=== PATIENT | female | born 1940 | race Asian ===

== ENCOUNTER 2017-09-19 22:50 | Emergency (ER) | payer MEDICARE, MEDICAID ==
[~2017-09-19] VITALS: Ht 147.3 cm; Wt 53.5 kg
[2017-09-20 01:05] VITALS: BP 142/62
== END 2017-09-20 01:07 | disposition home or self-care (01) ==
LOC: ED 23:35
DX: S00.12XA Contusion of left eyelid and periocular area, initial encounter (principal); S00.11XA Contusion of right eyelid and periocular area, initial encounter; G89.11 Acute pain due to trauma; R07.81 Pleurodynia; E11.9 Type 2 diabetes mellitus without complications; W01.198A Fall on same level from slipping, tripping and stumbling with subsequent striking against other object, initial encounter; Y93.01 Activity, walking, marching and hiking; Y92.480 Sidewalk as the place of occurrence of the external cause; Y99.8 Other external cause status
CPT/HCPCS: 70450; 70486; 72125; 93005; 99284

== ENCOUNTER 2019-05-02 14:39 | Emergency (ER) | payer MEDICARE, MEDICAID ==
--- NOTE | 2019-05-02 15:31 | NUR ---
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 NAD NOTED.
[2019-05-02 15:32] LABS: BASOPHILS # (AUTO) 0.02 x10^3/uL (0-0.1); BASOPHILS % (AUTO) 0 % (0-1); EOSINOPHILS # (AUTO) 0.34 x10^3/uL (0-0.4); EOSINOPHILS % (AUTO) 5 % (1-7); LYMPHOCYTES # (AUTO) 2.19 x10^3/uL (1-3.4); LYMPHOCYTES % (AUTO) 30 % (22-44); MD NO; MEAN CORPUSCULAR HEMOGLOBIN 27.8 pg (27.0-34.8); MEAN CORPUSCULAR HGB CONC 31.9 g/dL (32.4-35.8); MEAN CORPUSCULAR VOLUME 87.2 fL (80-100); MEAN PLATELET VOLUME 7.6 fL (7.4-10.4); MONOCYTES # (AUTO) 0.54 x10^3/uL (0.2-0.8); MONOCYTES % (AUTO) 7 % (2-9); NEUTROPHILS % (AUTO) 58 % (42-75); PLATELET COUNT 238 x10^3/uL (130-400); RED BLOOD COUNT 5.09 x10^6/uL (3.82-5.3); RED CELL DISTRIBUTION WIDTH 13.4 % (9.6-15.2)
--- NOTE | 2019-05-02 15:44 | NUR ---
PATIENT PRESENTS TO ED TODAY FOR DIZZINESS AND LEFT EAR PAIN STARTING TODAY, PROGRAM HOST ON PATIENT, AWAITING ORDERS, CALL LIGHT WITHIN REACH, JETT.
[2019-05-02 15:45] LABS: ANION GAP 5 mmol/L (5-15); CALCIUM 9.3 mg/dL (8.5-10.1); CHLORIDE 107 mmol/L (98-107); CREATININE 0.96 mg/dL (0.55-1.02)
[2019-05-02 15:48] LABS: TROPONIN I < 0.015 ng/mL (0.000-0.045)
[2019-05-02 16:20] LABS: MICROSCOPIC NOT IND
[2019-05-02 16:24] LABS: CULTURE INDICATED? NO
--- NOTE | 2019-05-02 16:24 | NUR ---
PATIENT AMB WITH STEADY GAIT TO BATHROOM, UA COLLECTED AND SENT TO LAB.
[2019-05-02 17:08] VITALS: BP 136/66
--- NOTE | 2019-05-02 17:08 | NUR ---
Patient/Caregiver given discharge instructions and they have confirmed that they understand the instructions. Patient ambulatory with steady gait.
== END 2019-05-02 17:10 | disposition home or self-care (01) ==
LOC: ED 16:11
DX: R42 Dizziness and giddiness (principal); E11.9 Type 2 diabetes mellitus without complications
CPT/HCPCS: 36415; 80048; 81003; 82040; 84484; 85025; 93005; 99284